=== PATIENT | female | born 1960 | race American Indian/Alaskan Native ===

== ENCOUNTER 2019-03-14 13:05 | Outpatient (CLI) | payer OTHER ==
--- NOTE | 2019-03-14 14:55 | Mammography Report ---
BILATERAL DIGITAL SCREENING MAMMOGRAM with CAD: 03/14/19 13:05:00 CLINICAL: Routine screening. COMPARISON:07/28/16 FINDINGS: The breasts are almost entirely fatty. No mass, architectural distortion or suspicious calcifications. IMPRESSION: No mammographic evidence of malignancy. BI-RADS CATEGORY: 1 - - Negative RECOMMENDATION: Routine mammographic screening in one year. COMMENT: Patient follow-up letters are generated by our [employer] application.
[2019-03-14] MEDS ORDERED: DIPRIVAN 10 MG/ML IV ONE (15:12)
== END 2019-03-14 13:06 | disposition home or self-care (01) ==
LOC: MAMMO 13:05
PROVIDERS: ATTEND Physician Assistant
DX: Z12.31 Encounter for screening mammogram for malignant neoplasm of breast (principal)
CPT/HCPCS: 77067; J2704

== ENCOUNTER 2020-03-15 12:59 | Outpatient (CLI) | payer OTHER ==
--- NOTE | 2020-03-15 14:29 | Mammography Report ---
DIGITAL SCREENING MAMMOGRAM WITH CAD, 03/15/2020 INDICATION: Routine screening mammography. TECHNIQUE: Digital bilateral 2D mammography was obtained in the craniocaudal and mediolateral obliq ue projections. This examination was interpreted with the benefit of Computer-Aided Detection analysi s. COMPARISON: Prior mammograms 03/14/2019 and 07/28/2016 FINDINGS: Breast Density: The breasts are almost entirely fatty. There is no evidence of dominant mass, suspicious calcifications or architectural distortion in eithe r breast. There has been no significant change compared with the prior examinations. IMPRESSION: Follow up recommendation: Routine yearly BI-RADS Category 1: Negative. A "normal" or negative report should not discourage follow up or biopsy of a clinically significant f inding. A written summary of these findings will be mailed to the patient. The patient will be entered into a mammography reporting system which will generate a reminder letter for the patient's next appointmen t at the appropriate interval. The [employer] recommends yearly mammograms starting at age 40 and continuing as l james as a woman is in good health. Breast MRI is recommended for women with an approximate 20-25% or greater lifetime risk of breast cancer, including women with a strong family history of breast or ova marina cancer or who have been treated for Hodgkin's disease. Signer Name: Cris Pitts MD Signed: 03/15/2020 2:24 PM Workstation Name: [id number]
== END 2020-03-15 13:00 | disposition home or self-care (01) ==
LOC: MAMMO 12:59
PROVIDERS: ATTEND Physician Assistant
DX: Z12.31 Encounter for screening mammogram for malignant neoplasm of breast (principal)
CPT/HCPCS: 77067

== ENCOUNTER 2021-03-18 14:35 | Outpatient (CLI) | payer OTHER ==
--- NOTE | 2021-03-18 16:36 | Mammography Report ---
DIGITAL SCREENING MAMMOGRAM WITH CAD, 03/18/2021 CLINICAL INFORMATION / INDICATION: Routine screening mammography. TECHNIQUE: Digital bilateral 2D mammography was obtained in the craniocaudal and mediolateral obliqu e projections. This examination was interpreted with the benefit of Computer-Aided Detection analysis . COMPARISON: 03/15/2020, 03/14/2019, 07/28/2016 FINDINGS: Breast Density: The breasts are almost entirely fatty. No dominant mass, suspicious calcifications, or architectural distortion in either breast. IMPRESSION: No mammographic evidence of malignancy. Follow up recommendation: Routine yearly BI-RADS Category 1: Negative. A "normal" or negative report should not discourage follow up or biopsy of a clinically significant f inding. A written summary of these findings will be mailed to the patient. The patient will be entered into a mammography reporting system which will generate a reminder letter for the patient's next appointmen t at the appropriate interval. The [employer] recommends yearly mammograms starting at age 40 and continuing as l james as a woman is in good health. Breast MRI is recommended for women with an approximate 20-25% or greater lifetime risk of breast cancer, including women with a strong family history of breast or ova marina cancer or who have been treated for Hodgkin's disease. Signer Name: Clarisse Lezama MD Signed: 03/18/2021 4:31 PM Workstation Name: [email or web address]
== END 2021-03-18 14:36 | disposition home or self-care (01) ==
LOC: MAMMO 14:35
PROVIDERS: ATTEND Physician Assistant
DX: Z12.31 Encounter for screening mammogram for malignant neoplasm of breast (principal)
CPT/HCPCS: 77067

== ENCOUNTER 2022-04-04 12:43 | Outpatient (CLI) | payer OTHER ==
--- NOTE | 2022-04-07 18:12 | Mammography Report ---
DIGITAL SCREENING MAMMOGRAM WITH CAD, 04/04/2022 CLINICAL INFORMATION / INDICATION: Routine screening mammography. TECHNIQUE: Digital bilateral 2D mammography was obtained in the craniocaudal and mediolateral obliqu e projections. This examination was interpreted with the benefit of Computer-Aided Detection analysis . COMPARISON: 03/18/2021, 03/15/2020 FINDINGS: Breast Density: The breasts are almost entirely fatty. No dominant mass, suspicious calcifications, or architectural distortion in either breast. No interval change. IMPRESSION: No mammographic evidence of malignancy. Follow up recommendation: Routine yearly screening mammogram. BI-RADS Category 1: NEGATIVE A "normal" or negative report should not discourage follow up or biopsy of a clinically significant f inding. A written summary of these findings will be mailed to the patient. The patient will be entered into a mammography reporting system which will generate a reminder letter for the patient's next appointmen t at the appropriate interval. The [employer] recommends yearly mammograms starting at age 40 and continuing as l james as a woman is in good health. Breast MRI is recommended for women with an approximate 20-25% or greater lifetime risk of breast cancer, including women with a strong family history of breast or ova marina cancer or who have been treated for Hodgkin's disease. Signer Name: Paige Bradshaw MD Signed: 04/07/2022 6:08 PM Workstation Name: [id number]
== END 2022-04-04 12:44 | disposition home or self-care (01) ==
LOC: MAMMO 12:43
PROVIDERS: ATTEND Nurse Practitioner Family
DX: Z12.31 Encounter for screening mammogram for malignant neoplasm of breast (principal)
CPT/HCPCS: 77067